=== PATIENT | male | born 1975 | race Caucasian/White ===

== ENCOUNTER 2019-08-21 08:35 | Outpatient (CLI) | payer BC ==
--- NOTE | 2019-08-21 10:15 | MRI ---
Exam: BRAIN MRI WITH AND WITHOUT CONTRAST: HISTORY: Pituitary mass. COMPARISON: [facility] MRI 07/31/2019 FINDINGS: Hemorrhage: No hemorrhage Calvarium: Appropriate T1 marrow signal intensity Midline brain parenchyma: Unremarkable Cerebrum:No brain parenchymal mass, mass effect or midline shift. Brain volume, age-appropriate. Kike ical mcintosh-white matter differentiation is preserved. Ventricles: No evidence of hydrocephalus. Sella/suprasellar region: There is an intrinsic T1 hypointense lesion with heterogeneous signal inten sity on the T2-weighted images. There is mass effect and splaying of the optic chiasm. Rightward deviation of the pituitary stalk. Postcontrast images demonstrate heterogeneous enhancement. This les ion measures 1.4 cm craniocaudal x 1.3 cm anterior posterior x 1.7 cm mediolateral. Imaging features favor a macroadenoma. Sinuses and mastoid air cells: Mild mucosal thickening in the paranasal sinuses. Left maxillary sinus mucous retention cyst. Partial opacification of the right mastoid air cells. Diffusion: Central arterial flow is maintained. Absent restricted diffusion. Postcontrast images: No pathologic enhancement of the brain parenchyma. IMPRESSION: Sellar/suprasellar mass with evidence of enhancement. Imaging features favor a pituitary macroadenoma . There is mass effect upon the optic chiasm with a rightward deviation of the pituitary stalk. Transcribed Date/Time: 08/21/2019 10:35 AM
== END 2019-08-21 08:36 | disposition home or self-care (01) ==
LOC: SCSMRI 08:35
PROVIDERS: ATTEND Family Medicine
DX: E23.6 Other disorders of pituitary gland (principal)
CPT/HCPCS: 70553

== ENCOUNTER 2019-10-23 10:12 | Outpatient (CLI) | payer BC ==
--- NOTE | 2019-10-23 12:47 | MRI ---
MRI CERVICAL SPINE WITHOUT CONTRAST: Date: 10/23/2019 HISTORY: Cervical radiculopathy with numbness in hands and fingers since May 2019. Stiffness in the neck from long computer usage. 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 TECHNIQUE: Multiplanar, multisequence MR images were obtained of the cervical spine without contrast. FINDINGS: Generalized disc desiccation is seen. The vertebral bodies demonstrate normal height and alignment wi thout fracture or subluxation. The visualized cord demonstrates normal signal throughout. The cranioc ervical junction is unremarkable. The prevertebral and paraspinal soft tissues are unremarkable. C2-C3: There is a small left paracentral protrusion. No posterior facet arthrosis. Mild central domenico l stenosis. Mild left neural foraminal stenosis. C3-C4: A moderate disc osteophyte complex is associated with a superimposed central protrusion. No p osterior facet arthrosis. Severe central canal stenosis. Moderate bilateral neural foraminal stenosis . C4-C5: A moderate disc osteophyte complex is seen. No posterior facet arthrosis. Moderate to severe central canal stenosis. Severe right and moderate left neural foraminal stenosis. C5-C6: A moderate disc osteophyte complex is seen. No posterior facet arthrosis. Severe central domenico l stenosis. Severe right and mild to moderate left neural foraminal stenosis. C6-C7: A small disc osteophyte complex is seen. No posterior facet arthrosis. Moderate central canal stenosis. Moderate bilateral neural foraminal stenosis. C7-T1: Unremarkable. IMPRESSION: Degenerative changes of the cervical spine as above. POS: [facility]
== END 2019-10-23 10:13 | disposition home or self-care (01) ==
LOC: BICMRI 10:12
PROVIDERS: ATTEND Neurological Surgery
DX: M47.22 Other spondylosis with radiculopathy, cervical region (principal); S16.1XXA Strain of muscle, fascia and tendon at neck level, initial encounter
CPT/HCPCS: 72141

== ENCOUNTER 2020-03-30 08:18 | Outpatient (CLI) | payer BC ==
--- NOTE | 2020-03-30 11:02 | MRI ---
Exam: Brain MRI with and without contrast HISTORY: Pituitary tumor COMPARISON: 08/21/2019 FINDINGS: Brain MRI: Hemorrhage: No hemorrhage Calvarium: Appropriate T1 marrow signal intensity Midline brain parenchyma: Unremarkable Cerebrum:No parenchymal mass, mass effect or midline shift. Brain volume, age-appropriate. Cortical g ray-white matter differentiation is preserved. No T2 or FLAIR white matter hyperintensities. Ventricles: No evidence of hydrocephalus. Sinuses and mastoid air cells: Mild mucosal thickening of the paranasal sinuses. Left maxillary sinus mucus retention cysts Diffusion: Central arterial flow is maintained. Absent restricted diffusion. Postcontrast images: No pathologic enhancement of the brain parenchyma. Pituitary MRI: Previously noted macroadenoma is not evident. Currently, the signal intensity suggest residual pituitary tissue. Previously noted convexity along the superior margin of the sella is no longer evident. The pituitary stalk is midline, and not thickened. No mass effect upon the optic jonathon sm and prechiasmatic optic nerves. There is an intrinsic T2 hyperintensity with peripheral enhancement along the midline the left aspect of the sella, which may represent postsurgical change m easuring 0.8 x 0.8 x 0.6 cm. IMPRESSION: 1. Findings suggesting at least partial if not near complete resection of the pituitary macroadenoma. Residual pituitary tissue is present. There may be postsurgical change involving the left aspect of the sella.
== END 2020-03-30 08:19 | disposition home or self-care (01) ==
LOC: SCSMRI 08:18
PROVIDERS: ATTEND Neurological Surgery
DX: D35.2 Benign neoplasm of pituitary gland (principal); Z98.890 Other specified postprocedural states
CPT/HCPCS: 36415; 70553; 80053; 82024; 82533; 83036; 84439; 84443